=== PATIENT | male | born 1965 | race Two or more races ===

== ENCOUNTER 2017-06-19 12:14 | Emergency (ER) | payer MEDICAID, OTHER ==
[~2017-06-19] VITALS: Ht 162.6 cm; Wt 72.6 kg
[~2017-06-19 12:14] MED LIST: NKM
[2017-06-19 13:04] LABS: BASOPHILS % (AUTO) 1.3 % (0.0-2.0); EOSINOPHILS % (AUTO) 1.3 % (0.0-3.0); MEAN CORPUSCULAR HEMOGLOBIN 29.7 PG (27.0-31.0); MEAN CORPUSCULAR HGB CONC 33.3 G/DL (32.0-36.0); MEAN CORPUSCULAR VOLUME 89 FL (80-99); MEAN PLATELET VOLUME 6.2 FL (6.5-10.1); MONOCYTES % (AUTO) 7.1 % (1.0-10.0); NEUTROPHILS % (AUTO) 66.3 % (45.0-75.0); PLATELET COUNT 348 K/UL (150-450); RED BLOOD COUNT 5.22 M/UL (4.70-6.10); RED CELL DISTRIBUTION WIDTH 11.1 % (11.6-14.8); WHITE BLOOD COUNT 9.4 K/UL (4.8-10.8)
[2017-06-19 13:10] VITALS: BP 118/74
[2017-06-19 13:18] LABS: TROPONIN I < 0.30 ng/mL (<=0.30)
[2017-06-19 13:22] LABS: ACETAMINOPHEN < 10 ug/mL (10-30); ALANINE AMINOTRANSFERASE 17 U/L (3-41); ALBUMIN/GLOBULIN RATIO 1.6 (1.0-2.7); ALCOHOL < 10 mg/dL; ANION GAP 14 (5-15); ASPARTATE AMINO TRANSFERASE 32 U/L (5-40); CALCIUM 9.1 mg/dL (8.6-10.2); CARBON DIOXIDE 24 mEQ/L (20-30); CHLORIDE 100 mEQ/L (98-107); CREATININE 0.8 mg/dL (0.7-1.2); GLOMERULAR FILTRATION RATE > 60 mL/min (>60); HEMOLYSIS 49; POTASSIUM 4.1 mEQ/L (3.4-4.9); SODIUM 138 mEQ/L (135-145); TOTAL PROTEIN 7.2 g/dL (6.6-8.7)
[2017-06-19 13:32] LABS: CKMB 2.6 ng/mL (< 6.7)
--- NOTE | 2017-06-19 14:03 | Diagnostic Imaging Report ---
Indication: Altered mental status Technique: Contiguous 5 mm thick transaxial imaging of the head obtained in a Siemens Sensation [address] scanner. Soft tissue and bone windows generated. Total Dose length Product (DLP): [address] Dose Index Volume (CTDIvol): 70.38, 0.15 mGy Comparison: 09/10/15 Findings: There is mild prominence of the ventricles, basal cisterns, and cerebral sulci consistent with atrophy. Mild, nonspecific, white matter hypoattenuation is noted throughout the brain consistent with chronic small vessel disease. There is no midline shift, edema, acute hemorrhage, mass effect, or abnormal extra-axial fluid collections. Bones and extra osseous soft tissues are unremarkable. Impression: No acute intracranial bleed, mass effect or edema. Mild atrophy of the brain. Nonspecific white matter hypoattenuation probably due to chronic small vessel disease. The CT scanner at [facility] is accredited by the [employer] and the scans are performed using dose optimization techniques as appropriate to a performed exam including Automatic Exposure control.
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
== END 2017-06-19 13:30 | disposition left against medical advice (07) ==
LOC: EDBD 12:14 → EMR 12:55
DX: R41.82 Altered mental status, unspecified (principal); G31.9 Degenerative disease of nervous system, unspecified
CPT/HCPCS: 36415; 70450; 80053; 80329; 82550; 82553; 84484; 85025; 96374; 99284

== ENCOUNTER 2019-07-16 21:59 | Emergency (ER) | payer MEDICAID, OTHER ==
[~2019-07-16] VITALS: Ht 162.6 cm; Wt 70.3 kg
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
[2019-07-16] MEDS ORDERED: HYDROcodone/Acetamin 5/325 tab ORAL ONE (22:30)
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
[2019-07-16] MEDS ORDERED: IBUPROFEN600 MG ORAL (23:46)
[2019-07-16] MEDS ORDERED: HYDROCODON-ACE1 EA15 ORAL (23:46)
[2019-07-17] VITALS: BP 129/76
--- NOTE | 2019-07-17 | NUR ---
ED Nurse Note: PT CONTINUES TO REST IN BED, PT READY FOR DISCHARGE, CALLED WHOM IS COMING TO GET PT, PT MEDICATED FOR PAIN, MEDS EFFECTIVE, PT SLEEPING, AROUSES EASILY TO VERBAL STIMULI, WILL CONTINUE TO CLOSELY MONITOR.
[2019-07-17 01:00] VITALS: BP 119/73
--- NOTE | 2019-07-17 01:30 | NUR ---
ED Nurse Note: PLACED SECOND CALL TO WHOM STATES IS ON HER WAY, HAD TO GET SOMEONE TO WATCH CHILDRES, PT CONTINUES TO SLEEP, V/S STABLE, NO SOB OR LABORED BREATHING, AROUSES EASILY, WILL CONTINUE TO MONITOR WHILE WAITING FOR SPOUSE FOR DISCHARGE.
--- NOTE | 2019-07-17 02:14 | NUR ---
ED Nurse Note: pt cleared to be d/c per ermd, pt discharge and aftercare instruction w/ prescription, pt education done via discussion and handout, pt advised to follow up with pcp or return to ed if changes in condition, vss, ambulatory w/ steady gait, pt accompanied by family, pt left w/ all belongings.
[2019-07-17 02:15] VITALS: BP 108/68
== END 2019-07-17 02:15 | disposition home or self-care (01) ==
LOC: EDBD 21:59 → EMR 22:17
DX: S22.31XA Fracture of one rib, right side, initial encounter for closed fracture (principal); S32.009A Unspecified fracture of unspecified lumbar vertebra, initial encounter for closed fracture; F10.920 Alcohol use, unspecified with intoxication, uncomplicated; V43.62XA Car passenger injured in collision with other type car in traffic accident, initial encounter; Y92.410 Unspecified street and highway as the place of occurrence of the external cause
CPT/HCPCS: 74176; Z7502; 99284